=== PATIENT | female | born 1980 | race Caucasian/White ===

== ENCOUNTER 2017-07-17 17:35 | Inpatient (IN) ==
[2017-07-17] MEDS ORDERED: ONDANSETRON 4 MG/2 ML VIAL IV PRN (18:01)
[2017-07-17] MEDS ORDERED: LACTATED RINGERS 250 ML IV ONE (18:01)
[2017-07-17 18:20] LABS: Basophils # 0.1 10*3/uL (0.0-0.2); Basophils % 0.4 % (0.0-0.8); Eosinophils # 0.2 10*3/uL (0.0-0.87); Eosinophils % 1.1 % (0.00-10.9); Hematocrit 42.5 VOL% (35.7-47.0); Hemoglobin 13.7 GM/DL (12.0-16.0); Immature Granulocytes % 1.3 %; Immature Granulocytes Absolute 0.18 #; Lymphocytes # 2.4 10*3/uL (1.4-4.0); Lymphocytes % 16.8 % (21.3-54.2); Mean Corpuscular HGB Conc 32.2 GM/DL (32-36); Mean Corpuscular Hemoglobin 28 PG (27-34); Mean Corpuscular Volume 85.9 FL (87-102); Mean Platelet Volume 10.9 FL (9.6-12.0); Monocytes # 0.8 10*3/uL (0.11-0.8); Monocytes % 5.8 % (1.7-12.7); Neutrophils # 10.6 10*3/uL (1.4-7.4); Neutrophils % 74.6 % (38.7-73.9); Platelet Count 308 T/CUMM (130-400); Red Blood Count 4.95 MC/CUMM (3.8-5.5); Red Cell Distribution Width 15.1 % (9.3-17.3); White Blood Count 14.2 T/CUMM (4-12)
[2017-07-17] MEDS ORDERED: NIFEdipine 10 MG CAPSULE PO SCH (19:00)
[2017-07-17] MEDS: miSOPROStol 200 MCG TABLET PO SCH ×2 (19:19→23:39)
[2017-07-17] MEDS ORDERED: ZOLPIDEM 5 MG TABLET PO PRN (19:27)
[2017-07-17] MEDS: LABETALOL 200 MG TABLET PO SCH ×2 (19:30→23:38)
[2017-07-17] MEDS ORDERED: ZALEPLON 5 MG CAPSULE PO PRN (20:00)
[2017-07-17] MEDS ORDERED: MEPERIDINE 50 MG/1 ML VIAL IV PRN (22:12)
[2017-07-18] MEDS ORDERED: OXYTOCIN/LR 20 UNIT/1,000 ML BAG IV ONE ×2 (00:30→00:35)
[2017-07-18 01:16] VITALS: BP 168/96
== END 2017-07-18 09:13 | disposition home or self-care (01) | DRG 779 ==
LOC: N.LDOUT 17:35 → N.LD 17:37
PROVIDERS: ADMIT Obstetrics & Gynecology; ATTEND Obstetrics & Gynecology

== ENCOUNTER 2019-11-01 10:30 | Inpatient (IN) ==
[~2019-11-01 10:30] MED LIST: ceFAZolin 1,000 MG in SYRINGE 1 EACH IV SCH
[2019-11-01 11:30] LABS: Basophils # 0.1 10*3/uL (0.0-0.2); Basophils % 0.6 % (0.0-0.8); Eosinophils # 0.2 10*3/uL (0.0-0.87); Hematocrit 34.8 VOL% (35.7-47.0); Hemoglobin 11.7 GM/DL (12.0-16.0); Immature Granulocytes % 0.7 %; Immature Granulocytes Absolute 0.07 #; Lymphocytes # 1.8 10*3/uL (1.4-4.0); Lymphocytes % 16.6 % (21.3-54.2); Mean Corpuscular HGB Conc 33.6 GM/DL (32-36); Mean Corpuscular Volume 85.1 FL (87-102); Mean Platelet Volume 11.3 FL (9.6-12.0); Monocytes % 5.8 % (1.7-12.7); Neutrophils % 74.3 % (38.7-73.9); Platelet Count 238 T/CUMM (130-400); Red Blood Count 4.09 MC/CUMM (3.8-5.5); Red Cell Distribution Width 15.2 % (9.3-17.3); White Blood Count 10.6 T/CUMM (4-12)
[2019-11-01 11:50] LABS: PT Patient Result 10.3 SECS (9.8-11.9); Partial Thromboplastin Time 26.5 SECS (23.9-33.8)
[2019-11-01 11:52] LABS: Apearance,Urine CLEAR (Clear); Bacteria,Urine Occasional /HPF (Few); Bilirubin,Urine Negative (Negative); Blood, Urine Negative (Negative); Glucose,Urine (UA) Negative (Negative); Ketones,Urine Negative (Negative); Mucus,Urine Occasional /LPF (Occasional); Nitrite,Urine Negative (Negative); Protein,Urine 30 MG/DL; RBC,Urine 1 /HPF (0-4); Squamous Epithelial Cell,Urine Occasional /HPF (0-10); Urine Color Yellow (Yellow); Urine Urobilinogen < 2.0 EU/DL (0.2-1.0); WBC,Urine 1 /HPF (0-6)
[2019-11-01 11:53] LABS: Alanine Aminotransferase 20 U/L (13-56); Albumin 2.3 G/DL (3.4-5.0); Alkaline Phosphatase 140 U/L (45-117); Aspartate Amino Transferase 24 U/L (0-37); Bilirubin,Direct < 0.100 MG/DL (0.0-0.20); Blood Urea Nitrogen 12 MG/DL (7-18); Calcium 9.3 MG/DL (8.5-10.1); Estimated Glom Filtration Rate 116 ML/MIN; Glucose 71 MG/DL (74-106); Osmolality,Calculated 270.8 MOS/KG (273-304); Total Protein 6.4 G/DL (6.4-8.3); Uric Acid 7.9 MG/DL (2.6-6.0)
[2019-11-01] MEDS ORDERED: ONDANSETRON 4 MG/2 ML VIAL IV PRN ×2 (13:30→20:12)
[2019-11-01] MEDS ORDERED: MEPERIDINE 25 MG/1 ML VIAL IV PRN (13:30)
[2019-11-01] MEDS ORDERED: BUTORPHANOL 2 MG/ML VIAL IV PRN (13:30)
[2019-11-01] MEDS ORDERED: BUTORPHANOL 1 MG/ML VIAL IV PRN (13:30)
[2019-11-01] MEDS ORDERED: MEPERIDINE 50 MG/1 ML VIAL IV PRN (13:30)
[2019-11-01] MEDS ORDERED: ceFAZolin 3,000 MG in SYRINGE 1 EACH IV ONE (18:02)
[2019-11-01] MEDS ORDERED: FAMOTIDINE 20 MG/2 ML VIAL IV ONE (18:02)
[2019-11-01] MEDS ORDERED: CITRIC ACID/SODIUM CITRATE 30 ML UDCUP PO ONE (18:02)
[2019-11-01] MEDS ORDERED: LABETALOL 100 MG TABLET PO ONE (18:02)
[2019-11-01] MEDS ORDERED: CITRIC ACID/SODIUM CITRATE 30 ML UDCUP ONE (18:03)
[2019-11-01] MEDS ORDERED: OXYTOCIN/LR 20 UNIT/1,000 ML BAG IV ONE ×2 (18:04→20:12)
[2019-11-01] MEDS ORDERED: MAGNESIUM SULF RIDER 100 ML IV ONE (18:05)
[2019-11-01] MEDS: LACTATED RINGERS 1,000 ML IV SCH (18:10)
[2019-11-01] MEDS ORDERED: TRANEXAMIC ACID 1,000 MG/10 ML VIAL ONE (18:16)
[2019-11-01] MEDS ORDERED: miSOPROStoL 200 MCG TABLET ONE (18:16)
[2019-11-01] MEDS ORDERED: CARBOPROST TROMETHAMINE 250 MCG/ML AMP IM ONE (18:16)
[2019-11-01] MEDS ORDERED: METHYLERGONOVINE 0.2 MG/1 ML AMP ONE (18:16)
[2019-11-01] MEDS ORDERED: MAGNESIUM SULF DRIP 40 GM/1,000 ML ML IV SCH ×2 (18:30→20:30)
[2019-11-01] MEDS ORDERED: LACTATED RINGERS 1,000 ML IV SCH ×2 (18:30→20:30)
[2019-11-01] MEDS ORDERED: OXYTOCIN 10 UNIT/ML VIAL ONE (19:11)
[2019-11-01 19:39] LABS: Cord Arterial Blood HCO3 20.4 MMOL/L
[2019-11-01 19:55] LABS: Cord Venous Blood HCO3 21.9 MMOL/L; Cord Venous Blood PCO2 40.8 MMHG; Cord Venous Blood PO2 33.3
[2019-11-01] MEDS ORDERED: PHENYLEPHRINE 1 MG/10 ML SYRINGE IV ONE (20:02)
[2019-11-01] MEDS ORDERED: MORPHINE 10 MG/10 ML VIAL ONE (20:03)
[2019-11-01] MEDS ORDERED: fentaNYL 100 MCG/2 ML VIAL ONE (20:03)
[2019-11-01] MEDS ORDERED: BUPIVACAINE SPINAL 0.75% 2 ML AMP SPINAL ONE (20:04)
[2019-11-01] MEDS ORDERED: MAGNESIUM HYDROXIDE SUSP 30 ML UDCUP PO PRN (20:12)
[2019-11-01] MEDS ORDERED: SIMETHICONE CHEW 80 MG TABLET PO PRN (20:12)
[2019-11-01] MEDS ORDERED: RHO(D) IMMUNE GLOBULIN 300 MCG SYRINGE IM ONE (20:12)
[2019-11-01] MEDS ORDERED: ACETAMINOPHEN 325 MG TABLET PO PRN (20:12)
[2019-11-01] MEDS ORDERED: LABETALOL 100 MG TABLET PO SCH (21:00)
[2019-11-01 22:13] LABS: Apearance,Urine CLEAR (Clear); Bilirubin,Urine Negative (Negative); Blood, Urine Negative (Negative); Glucose,Urine (UA) Negative (Negative); Ketones,Urine 5 mg/dL (Negative); Mucus,Urine Occasional /LPF (Occasional); Nitrite,Urine Negative (Negative); Protein,Urine 30 MG/DL; RBC,Urine <1 /HPF (0-4); Squamous Epithelial Cell,Urine Occasional /HPF (0-10); Urine Color Yellow (Yellow); Urine Specific Gravity 1.016 (1.001-1.035); Urine Urobilinogen < 2.0 EU/DL (0.2-1.0); WBC,Urine 1 /HPF (0-6)
[2019-11-01] MEDS: DOCUSATE SODIUM 100 MG CAPSULE PO SCH (22:52)
[2019-11-02] MEDS ORDERED: diphenhydrAMINE 50 MG/1 ML VIAL IV PRN (00:20)
[2019-11-02] MEDS: IBUPROFEN 800 MG TABLET PO PRN ×3 (02:47→17:56)
[2019-11-02] MEDS: ceFAZolin 1,000 MG in SYRINGE 1 EACH IV SCH ×2 (04:35→13:38)
[2019-11-02] MEDS: LACTATED RINGERS 1,000 ML IV SCH (04:39)
[2019-11-02 05:19] LABS: Basophils # 0.1 10*3/uL (0.0-0.2); Basophils % 0.5 % (0.0-0.8); Eosinophils # 0.2 10*3/uL (0.0-0.87); Eosinophils % 1.7 % (0.00-10.9); Hematocrit 32.8 VOL% (35.7-47.0); Hemoglobin 10.6 GM/DL (12.0-16.0); Immature Granulocytes % 0.6 %; Immature Granulocytes Absolute 0.07 #; Lymphocytes # 1.4 10*3/uL (1.4-4.0); Lymphocytes % 12.4 % (21.3-54.2); Mean Corpuscular HGB Conc 32.3 GM/DL (32-36); Mean Corpuscular Volume 89.4 FL (87-102); Mean Platelet Volume 11.2 FL (9.6-12.0); Monocytes % 4.4 % (1.7-12.7); Neutrophils % 80.4 % (38.7-73.9); Platelet Count 209 T/CUMM (130-400); Red Blood Count 3.67 MC/CUMM (3.8-5.5); Red Cell Distribution Width 15.2 % (9.3-17.3); White Blood Count 11.3 T/CUMM (4-12)
[2019-11-02 05:55] LABS: Hypochromasia Slight; Platelet Estimate Adequate
[2019-11-02] MEDS: DOCUSATE SODIUM 100 MG CAPSULE PO SCH ×2 (10:00→21:31)
[2019-11-02] MEDS: MULTIVITAMIN (PRENATAL) TABLET PO SCH (10:00)
[2019-11-02] MEDS: LABETALOL 200 MG TABLET PO SCH ×2 (10:00→21:31)
[2019-11-02] MEDS: ASPIRIN EC 81 MG TABLET PO SCH (17:56)
[2019-11-02] MEDS ORDERED: HydrOXYzine PAMOATE 25 MG CAPSULE PO PRN (18:54)
[2019-11-03] MEDS: IBUPROFEN 800 MG TABLET PO PRN ×3 (03:33→18:30)
[2019-11-03] MEDS: ASPIRIN EC 81 MG TABLET PO SCH (07:30)
[2019-11-03] MEDS: MULTIVITAMIN (PRENATAL) TABLET PO SCH (07:30)
[2019-11-03] MEDS: DOCUSATE SODIUM 100 MG CAPSULE PO SCH ×2 (07:30→21:18)
[2019-11-03] MEDS: LABETALOL 200 MG TABLET PO SCH ×2 (07:30→21:18)
[2019-11-04 07:35] VITALS: BP 145/72
[2019-11-04] MEDS: MULTIVITAMIN (PRENATAL) TABLET PO SCH (08:38)
[2019-11-04] MEDS: ASPIRIN EC 81 MG TABLET PO SCH (08:38)
[2019-11-04] MEDS: DOCUSATE SODIUM 100 MG CAPSULE PO SCH (08:38)
[2019-11-04] MEDS: LABETALOL 200 MG TABLET PO SCH (08:38)
[2019-11-04] MEDS ORDERED: DIPH/TET/ACEL PERT BOOSTER VACCINE 0.5 ML VIAL IM ONE (10:27)
== END 2019-11-04 11:20 | disposition home or self-care (01) | DRG 787 ==
LOC: N.LDOUT 10:30 → N.LD 10:32 → N.OB 11-02 18:16
PROVIDERS: ADMIT Obstetrics & Gynecology; ATTEND Obstetrics & Gynecology
PROC: LDCSECT (ICD-10-PCS; 2019-11-01 18:25)

== ENCOUNTER 2021-12-04 07:47 | Inpatient (IN) ==
[2021-12-04 09:08] LABS: Basophils # 0.1 10*3/uL (0.0-0.2); Basophils % 0.7 % (0.0-0.8); Eosinophils # 0.2 10*3/uL (0.0-0.87); Eosinophils % 2.2 % (0.00-10.9); Hematocrit 41.4 VOL% (35.7-47.0); Immature Granulocytes Absolute 0.09 #; Lymphocytes # 2.3 10*3/uL (1.4-4.0); Lymphocytes % 25.6 % (21.3-54.2); Mean Corpuscular HGB Conc 31.4 GM/DL (32-36); Mean Platelet Volume 9.8 FL (9.6-12.0); Monocytes # 0.6 10*3/uL (0.11-0.8); Monocytes % 6.5 % (1.7-12.7); Platelet Count 363 T/CUMM (130-400); Red Blood Count 4.93 MC/CUMM (3.8-5.5); Red Cell Distribution Width 14.1 % (9.3-17.3)
[2021-12-04] MEDS ORDERED: PIPERACILLIN/TAZOBACTAM 3,375 MG in SODIUM CHLORIDE 0.9% 100 ML IV STA (09:19)
[2021-12-04 09:24] LABS: Calcium 9.8 MG/DL (8.5-10.1); Osmolality,Calculated 274.7 MOS/KG (273-304); Potassium 3.7 MMOL/L (3.5-5.1)
[2021-12-04] MEDS ORDERED: ONDANSETRON 4 MG/2 ML VIAL IV PRN (11:33)
[2021-12-04] MEDS ORDERED: GLUCAGON 1 MG VIAL IM PRN (11:33)
[2021-12-04] MEDS ORDERED: ACETAMINOPHEN 325 MG TABLET PO PRN (11:33)
[2021-12-04] MEDS ORDERED: DEXTROSE 10% 250 ML BAG IV PRN (11:43)
[2021-12-04] MEDS ORDERED: ENOXAPARIN 40 MG/0.4 ML SYRINGE SUBCUT SCH (13:00)
[2021-12-04] MEDS ORDERED: HYDROmorphone 1 MG/1 ML SYRINGE IV PRN ×2 (13:53)
[2021-12-04] MEDS: SODIUM CHLORIDE 0.45% 1,000 ML IV SCH (15:40)
[2021-12-04] MEDS: INSULIN LISPRO 100 UNIT/ML SUBCUT SCH (17:23)
[2021-12-04] MEDS: PIPERACILLIN/TAZOBACTAM 3,375 MG in SODIUM CHLORIDE 0.9% 100 ML IV SCH (17:23)
[2021-12-05] MEDS: PIPERACILLIN/TAZOBACTAM 3,375 MG in SODIUM CHLORIDE 0.9% 100 ML IV SCH ×3 (00:52→17:06)
[2021-12-05] MEDS ORDERED: SEVOFLURANE 1 UNIT/15 MINUTE INH ONE (06:53)
[2021-12-05] MEDS ORDERED: MIDAZOLAM 2 MG/2 ML VIAL ONE (06:53)
[2021-12-05] MEDS ORDERED: ONDANSETRON 4 MG/2 ML VIAL ONE (06:53)
[2021-12-05] MEDS ORDERED: PHENYLEPHRINE 1 MG/10 ML SYRINGE IV ONE (06:53)
[2021-12-05] MEDS ORDERED: LIDOCAINE 2% 5 ML VIAL ONE (06:53)
[2021-12-05] MEDS ORDERED: propofoL 200 MG/20 ML VIAL IV ONE (06:53)
[2021-12-05] MEDS ORDERED: fentaNYL 100 MCG/2 ML VIAL ONE (06:53)
[2021-12-05] MEDS: predniSONE 10 MG TABLET PO SCH (08:16)
[2021-12-05] MEDS: LABETALOL 200 MG TABLET PO SCH (08:16)
[2021-12-05] MEDS: FUROSEMIDE 40 MG TABLET PO SCH (08:16)
[2021-12-05] MEDS: PANTOPRAZOLE 40 MG TABLET PO SCH (08:17)
[2021-12-05] MEDS: amLODIPine 10 MG TABLET PO SCH (08:17)
[2021-12-05] MEDS: INSULIN LISPRO 100 UNIT/ML SUBCUT SCH ×2 (09:27→17:06)
[2021-12-05] MEDS: SODIUM CHLORIDE 0.45% 1,000 ML IV SCH ×2 (13:29→23:24)
[2021-12-05] MEDS ORDERED: DEXTROSE 50% 25 GM/50 ML VIAL IV PRN (16:03)
[2021-12-06] MEDS: PIPERACILLIN/TAZOBACTAM 3,375 MG in SODIUM CHLORIDE 0.9% 100 ML IV SCH ×3 (01:21→17:00)
[2021-12-06 06:14] LABS: Basophils # 0.1 10*3/uL (0.0-0.2); Basophils % 0.5 % (0.0-0.8); Eosinophils # 0.2 10*3/uL (0.0-0.87); Eosinophils % 1.8 % (0.00-10.9); Hematocrit 36.4 VOL% (35.7-47.0); Hemoglobin 11.8 GM/DL (12.0-16.0); Immature Granulocytes % 0.8 %; Immature Granulocytes Absolute 0.09 #; Lymphocytes # 2.2 10*3/uL (1.4-4.0); Lymphocytes % 19.6 % (21.3-54.2); Mean Corpuscular HGB Conc 32.4 GM/DL (32-36); Mean Corpuscular Volume 83.1 FL (87-102); Mean Platelet Volume 9.7 FL (9.6-12.0); Monocytes # 0.6 10*3/uL (0.11-0.8); Monocytes % 5.7 % (1.7-12.7); Neutrophils % 71.6 % (38.7-73.9); Platelet Count 337 T/CUMM (130-400); Red Blood Count 4.38 MC/CUMM (3.8-5.5); Red Cell Distribution Width 13.9 % (9.3-17.3); White Blood Count 11.3 T/CUMM (4-12)
[2021-12-06 06:29] LABS: Calcium 8.5 MG/DL (8.5-10.1); Osmolality,Calculated 280.3 MOS/KG (273-304); Potassium 3.4 MMOL/L (3.5-5.1)
[2021-12-06] MEDS: LABETALOL 200 MG TABLET PO SCH (08:14)
[2021-12-06] MEDS: amLODIPine 10 MG TABLET PO SCH (08:14)
[2021-12-06] MEDS: predniSONE 10 MG TABLET PO SCH (08:14)
[2021-12-06] MEDS: FUROSEMIDE 40 MG TABLET PO SCH (08:15)
[2021-12-06] MEDS: PANTOPRAZOLE 40 MG TABLET PO SCH (08:15)
[2021-12-06] MEDS: INSULIN LISPRO 100 UNIT/ML SUBCUT SCH ×2 (08:22→17:00)
[2021-12-06] MEDS ORDERED: POTASSIUM CHLORIDE 20 MEQ TABLET PO ONE (10:34)
[2021-12-06] MEDS: SODIUM CHLORIDE 0.45% 1,000 ML IV SCH (17:00)
[2021-12-07] MEDS: PIPERACILLIN/TAZOBACTAM 3,375 MG in SODIUM CHLORIDE 0.9% 100 ML IV SCH ×2 (00:51→10:38)
[2021-12-07 06:19] LABS: Basophils # 0.1 10*3/uL (0.0-0.2); Basophils % 0.4 % (0.0-0.8); Eosinophils # 0.2 10*3/uL (0.0-0.87); Eosinophils % 1.4 % (0.00-10.9); Hemoglobin 11.8 GM/DL (12.0-16.0); Immature Granulocytes % 0.9 %; Immature Granulocytes Absolute 0.11 #; Lymphocytes % 15.9 % (21.3-54.2); Mean Corpuscular HGB Conc 31.9 GM/DL (32-36); Mean Corpuscular Volume 84.3 FL (87-102); Mean Platelet Volume 9.8 FL (9.6-12.0); Monocytes # 0.6 10*3/uL (0.11-0.8); Neutrophils % 76.4 % (38.7-73.9); Platelet Count 330 T/CUMM (130-400); Red Blood Count 4.39 MC/CUMM (3.8-5.5); Red Cell Distribution Width 13.9 % (9.3-17.3); White Blood Count 12.7 T/CUMM (4-12)
[2021-12-07 06:35] LABS: Calcium 8.8 MG/DL (8.5-10.1); Osmolality,Calculated 280.3 MOS/KG (273-304); Potassium 4.1 MMOL/L (3.5-5.1)
[2021-12-07 08:01] VITALS: BP 161/87
[2021-12-07] MEDS: amLODIPine 10 MG TABLET PO SCH (08:32)
[2021-12-07] MEDS: FUROSEMIDE 40 MG TABLET PO SCH (08:32)
[2021-12-07] MEDS: LABETALOL 200 MG TABLET PO SCH (08:33)
[2021-12-07] MEDS: PANTOPRAZOLE 40 MG TABLET PO SCH (08:33)
[2021-12-07] MEDS: predniSONE 10 MG TABLET PO SCH (08:33)
[2021-12-07] MEDS: SODIUM CHLORIDE 0.45% 1,000 ML IV SCH ×2 (10:37→15:46)
[2021-12-07] MEDS: INSULIN LISPRO 100 UNIT/ML SUBCUT SCH (10:38)
[2021-12-09] MEDS ORDERED: NON-FORMULARY MEDICATION (Semaglutide [Ozempic] 0.25 mg or 0.5 mg(2 mg/1.5 mL) Pen Injecto SUBCUT SCH (11:37)
== END 2021-12-07 12:25 | disposition home or self-care (01) | DRG 475 ==
LOC: N.ED 07:47 → N.EDINP 11:33 → N.5E 13:47
PROVIDERS: ADMIT Family Medicine; ATTEND Family Medicine